=== PATIENT | female | born 1995 | race African-American/Black ===

== ENCOUNTER 2020-08-12 07:50 | Emergency (ER) | payer OTHER ==
[~2020-08-12] VITALS: Ht 165.1 cm; Wt 58.0 kg
[~2020-08-12 07:50] MED LIST: Ibuprofen PO; PNV1TABL12 PO
[2020-08-12] MEDS ORDERED: IV NORMAL SALINE 1000ML BAG 1,000 ML IV ONE (08:15)
[2020-08-12] MEDS ORDERED: FAMOTIDINE 20 MG/2 ML VIAL IVP ONE ×2 (08:45→10:45)
[2020-08-12 09:03] LABS: BILIRUBIN,URINE NEGATIVE (NEG); CLARITY,URINE CLEAR; COLOR,URINE YELLOW; NITRITE,URINE NEGATIVE (NEG); PROTEIN,URINE NEGATIVE (NEG-TRACE)
[2020-08-12 09:08] LABS: CALCIUM 8.6 mg/dL (8.5-10.1); CREATININE 0.6 mg/dL (0.6-1.0); GFR 145.1; POTASSIUM 3.5 mmol/L (3.5-5.1)
[2020-08-12 09:14] LABS: ALBUMIN 3.2 g/dL (3.4-5.0); ALBUMIN/GLOBULIN RATIO 0.8 (1.0-1.7); MAGNESIUM 1.9 mg/dL (1.8-2.4); TOTAL PROTEIN 7.3 g/dL (6.4-8.2)
[2020-08-12 09:24] LABS: BACTERIA,URINE FEW /HPF (0-FEW); RBC,URINE OCC /HPF (0-2)
--- NOTE | 2020-08-12 09:25 | RAD ---
EXAMINATION: US OB <14 WKS +TV INDICATION: 25 years, Female, upper abdominal pain and previously. COMPARISON: None TECHNIQUE: Transabdominal ultrasound of the pelvis was performed with grayscale, spectral, and color doppler imaging. FINDINGS: UTERUS: Position: Anteverted Measures: 12.9 x 9.8 x 2.6 cm. GESTATIONAL SAC: Uniform morphology. [place]-Rump Length: 6.8 cm corresponds to 13 weeks and 0 day. Heart Rate: 162 bpm. Yolk sac is not visualized. Cervical canal measures 4.8 cm in length. Expected date of delivery by last menstrual period:02/15/2021 Expected date of delivery by ultrasound: 02/17/2021 RIGHT OVARY/ADNEXA: Not visualized due to gravid uterus. LEFT OVARY/ADNEXA: Measures: 2.3 x 1.7 x 1.7 cm Right Ovarian Morphology: Unremarkable Right Ovarian Color And Spectral Doppler Flow: Normal Fluid: No free fluid IMPRESSION Single live intrauterine with estimated gestational age based on crown-rump length is 13 we eks and 0 days. Recommend routine anatomic screening at 18-22 weeks. Electronically signed by: Luis Gardner MD (08/12/2020 9:23 AM) [facility]
[2020-08-12 10:03] LABS: BASO % 0 % (0-3); EOS % 0 % (0-3); HEMOGLOBIN 9.5 g/dL (12.0-15.5); LYMPH # 1.3 x10^3/uL (1.0-4.8); LYMPH % 14 % (24-48); MEAN CORPUSCULAR HEMOGLOBIN 27 pg (25-35); MEAN CORPUSCULAR HGB CONC 33 g/dL (31-37); MEAN CORPUSCULAR VOLUME 83 fL (79-100); MONO # 0.6 x10^3/uL (0.0-1.1); MONO % 6 % (0-9); NEUT # 7.3 x10^3/uL (1.8-7.7); NEUT % 79 % (31-73); PLATELET COUNT 306 x10^3/uL (140-400); RED BLOOD COUNT 3.49 x10^6/uL (3.50-5.40); RED CELL DISTRIBUTION WIDTH 17.5 % (11.5-14.5); WHITE BLOOD COUNT 9.2 x10^3/uL (4.0-11.0)
[2020-08-12 10:20] VITALS: BP 115/71
[2020-08-12] MEDS ORDERED: AMOX1TAB61 PO (10:45)
[2020-08-12] MEDS ORDERED: FAMO-63 PO (10:45)
[2020-08-12] MEDS ORDERED: AMOXICILLIN/K CLAV 875/125MG TABLET. PO ONE (10:45)
[2020-08-12] MEDS ORDERED: CHLO15MO2 PO (10:45)
--- NOTE | 2020-08-12 10:46 | PHYS DOC ---
Past Medical History Past Medical History: Abscess Past Surgical History: No Surgical History Smoking Status: Never Smoker Alcohol Use: None Drug Use: None General Adult EDM: Chief Complaint: CHEST PAIN-NON CARDIAC NATURE HPI: HPI: 25-year-old female who is approximately 3 months presents with report of upper abdominal discomfort which is worse with deep inspiration and movement. Denies nausea or vomiting. Denies fever or chills. Patient does report she was seen at [facility] for same. Patient denies having a ultrasound performed at that time. Denies history of PE/DVT. Denies calf tenderness. Denies trauma. Denies fever or chills. 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 Heart Score: C/O Chest Pain: N/A Current Medications: Current Medications Medications (Trade) Dose Ordered Sig/Sandra Start Time Stop Time Status Last Admin Dose Admin Famotidine (Pepcid Vial) 20 mg 1X ONCE 08/12/20 08:45 08/12/20 08:46 DC 08/12/20 08:45 20 MG Sodium Chloride 1,000 ml @ 1,000 mls/hr 1X ONCE 08/12/20 08:15 08/12/20 09:14 DC 08/12/20 09:15 1,000 MLS/HR Allergies: Allergies: Allergies Coded Allergies Type Severity Reaction Last Updated Verified No Known Drug Allergies 04/14/14 No Physical Exam: PE: Constitutional: Well developed, well nourished, no acute distress, non-toxic appearance HENT: Normocephalic, atraumatic, poor dentition, gingival swelling/irritation noted, multiple caries throughout Eyes: Conjunctiva normal, no discharge Neck: Normal range of motion, no tenderness, supple Lungs & Thorax: No respiratory distress, equal chest rise and fall, no wheezings/rales/rhonchi Cardiovascular: Regular rate and rhythm, no murmur Abdomen: Soft, gravid abdomen, no tenderness, no guarding/rebound tenderne ss/distention Skin: Warm, dry, no erythema, no rash Back: No tenderness, no CVA tenderness Extremities: No tenderness, ROM intact, no edema Neurologic: Alert and oriented X 3, no focal deficits noted Psychologic: Affect normal, judgment normal Current Patient Data: Labs: Laboratory Tests Test 08/12/20 08:32 08/12/20 09:35 Urine Collection Type Unknown Urine Color Yellow Urine Clarity Clear Urine pH 7.0 (<5.0-8.0) Urine Specific [place] 1.015 (1.000-1.030) Urine Protein Negative mg/dL (NEG-TRACE) Urine Glucose (UA) Negative mg/dL (NEG) Urine Ketones (Stick) 40 mg/dL (NEG) Urine Blood Negative (NEG) Urine Nitrite Negative (NEG) Urine Bilirubin Negative (NEG) Urine Urobilinogen Dipstick 1.0 mg/dL (0.2 mg/dL) Urine Leukocyte Esterase Small (NEG) Urine RBC Occ /HPF (0-2) Urine WBC 1-4 /HPF (0-4) Urine Squamous Epithelial Cells Mod /LPF Urine Bacteria Few /HPF (0-FEW) Urine Mucus Slight /LPF Maternal Serum HCG Beta Subunit 93225 mIU/mL (0-5) H Sodium Level 136 mmol/L (136-145) Potassium Level 3.5 mmol/L (3.5-5.1) Chloride Level 100 mmol/L (98-107) Carbon Dioxide Level 23 mmol/L (21-32) Anion Gap 13 (6-14) Blood Urea Nitrogen 7 mg/dL (7-20) Creatinine 0.6 mg/dL (0.6-1.0) Estimated GFR (Cockcroft-Gault) 145.1 BUN/Creatinine Ratio 12 (6-20) Glucose Level 88 mg/dL (70-99) Calcium Level 8.6 mg/dL (8.5-10.1) Magnesium Level 1.9 mg/dL (1.8-2.4) Total Bilirubin 1.0 mg/dL (0.2-1.0) Aspartate Amino Transferase (AST) 17 U/L (15-37) Alanine Aminotransferase (ALT) 11 U/L (14-59) L Alkaline Phosphatase 65 U/L (46-116) Total Protein 7.3 g/dL (6.4-8.2) Albumin 3.2 g/dL (3.4-5.0) L Albumin/Globulin Ratio 0.8 (1.0-1.7) L Lipase 35 U/L (73-393) L White Blood Count 9.2 x10^3/uL (4.0-11.0) Red Blood Count 3.49 x10^6/uL (3.50-5.40) L Hemoglobin 9.5 g/dL (12.0-15.5) L Hematocrit 29.0 % (36.0-47.0) L Mean Corpuscular Volume 83 fL (79-100) Mean Corpuscular Hemoglobin 27 pg (25-35) Mean Corpuscular Hemoglobin Concent 33 g/dL (31-37) Red Cell Distribution Width 17.5 % (11.5-14.5) H Platelet Count 306 x10^3/uL (140-400) Neutrophils (%) (Auto) 79 % (31-73) H Lymphocytes (%) (Auto) 14 % (24-48) L Monocytes (%) (Auto) 6 % (0-9) Eosinophils (%) (Auto) 0 % (0-3) Basophils (%) (Auto) 0 % (0-3) Neutrophils # (Auto) 7.3 x10^3/uL (1.8-7.7) Lymphocytes # (Auto) 1.3 x10^3/uL (1.0-4.8) Monocytes # (Auto) 0.6 x10^3/uL (0.0-1.1) Eosinophils # (Auto) 0.0 x10^3/uL (0.0-0.7) Basophils # (Auto) 0.0 x10^3/uL (0.0-0.2) Laboratory Tests 08/12/20 09:35 Laboratory Tests 08/12/20 08:32 Vital Signs: Vital Signs Date Time Temp Pulse Resp B/P (MAP) Pulse Ox O2 Delivery O2 Flow Rate FiO2 08/12/20 07:55 98.6 101 18 123/67 (85) Room Air 98.6 EKG: EKG: [] Radiology/Procedures: Radiology/Procedures: PROCEDURE: OB < 14 WKS EXAMINATION: US OB <14 WKS +TV INDICATION: 25 years, Female, upper abdominal pain and previously. COMPARISON: None TECHNIQUE: Transabdominal ultrasound of the pelvis was performed with grayscale, spectral, and color doppler imaging. FINDINGS: UTERUS: Position: Anteverted Measures: 12.9 x 9.8 x 2.6 cm. GESTATIONAL SAC: Uniform morphology. [place]-Rump Length: 6.8 cm corresponds to 13 weeks and 0 day. Heart Rate: 162 bpm. Yolk sac is not visualized. Cervical canal measures 4.8 cm in length. Expected date of delivery by last menstrual period:02/15/2021 Expected date of delivery by ultrasound: 02/17/2021 RIGHT OVARY/ADNEXA: Not visualized due to gravid uterus. LEFT OVARY/ADNEXA: Measures: 2.3 x 1.7 x 1.7 cm Right Ovarian Morphology: Unremarkable Right Ovarian Color And Spectral Doppler Flow: Normal Fluid: No free fluid IMPRESSION Single live intrauterine with estimated gestational age based on crown-rump length is 13 weeks and 0 days. Recommend routine anatomic screening at 18-22 weeks. Electronically signed by: Luis Gardner MD (08/12/2020 9:23 AM) [facility] Course & Med Decision Making: Course & Med Decision Making Pertinent Labs and Imaging studies reviewed. (See chart for details) patient presents at 3 months with report of upper abdominal discomfort which is worse with deep inspiration. Patient was seen at [facility] for same yesterday without significant diagnosis per patient. Patient was given pain medication. Patient denies any nausea or vomiting. Denies trauma. Denies vaginal bleeding or discharge. Patient reports she did not receive an ultrasound yesterday. Abdomen nonperitoneal. Vital signs stable. Patient without significant tachycardia. Patient also 100% on room air. Patient did not appear in any distress. No focal signs of DVT appreciated. Discussed risk of PE with patient given . Shared decision utilized weighing risks and benefits of CTA chest. Given no other focal signs of a PE decision that risks of radiation outweigh the benefit at this time. Labs obtained and posted to chart. OB ultrasound without acute process. A copy of ultrasound report provided to patient to give to her OB. Patient also noted to have poor dental hygiene. Signs of gingivitis with dental caries noted. Empiric antibiotic initiated. Patient stable for discharge with outpatient follow-up with PCP/OB-AIRPORT DUTY MANAGER/dentist. Discussed findings and plan with patient, who acknowledges understanding and agreement. Syed Disclaimer: Syed Disclaimer: This electronic medical record was generated, in whole or in part, using a voice recognition dictation system. Departure Departure Impression: Primary Impression: Abdominal pain during Qualified Codes: O26.892 - Other specified related conditions, second trimester; R10.9 - Unspecified abdominal pain Additional Impressions: Dental caries Gingivitis Disposition: HOME / SELF CARE / HOMELESS Condition: STABLE Referrals: UNKNOWN PCP NAME (PCP) Patient Instructions: Abdominal Pain During , [id number], Dental Caries, Gingivitis, [id number] Additional Instructions: Use tylenol as needed for pain. Please follow with dentist for further evaluation and treatment of your dental issues. Please follow with your OB-AIRPORT DUTY MANAGER. Scripts Famotidine (PEPCID) 20 Mg Tablet 20 MG PO HS, #30 TAB Prov: RUTHANN STONE DO 08/12/20 Chlorhexidine Gluconate (PERIDEX) 15 Ml Mouthwash 15 ML PO BID, #473 ML 0 Refills Prov: RUTHANN STONE DO 08/12/20 Amoxicillin/Potassium Clav (AUGMENTIN 875-125 TABLET) 1 Each Tablet 1 TAB PO BID, #14 TAB Prov: RUTHANN STONE DO 08/12/20 RUTHANN STONE DO Aug 12, 2020 10:46
== END 2020-08-12 10:55 | disposition home or self-care (01) ==
LOC: ER 07:50
DX: O26.891 Other specified pregnancy related conditions, first trimester (principal); R10.10 Upper abdominal pain, unspecified; O99.611 Diseases of the digestive system complicating pregnancy, first trimester; K02.9 Dental caries, unspecified; Z3A.13 13 weeks gestation of pregnancy
CPT/HCPCS: 36415; 76801; 80053; 81001; 83690; 83735; 84702; 85025; 87086; 96361; 96374; 96375; 99284; J3490; J7030